=== PATIENT | male | born 1955 | race Caucasian/White ===

== ENCOUNTER → 2016-11-22 | Outpatient (CLI) | payer OTHER ==
[~2016-11-22] MED LIST: ADULT LOW DOSE81 MG PO; ASPIRIN EC81 M1; BACTRIM DS TAB1 EACH PO; CIPROFLOXACIN500 M1 PO; FLECAINIDE ACET50 M2; HYDROCODON-ACE1 EAC7; HYDROCODONE-AP1 EAC6; LORTAB 5 MG/5001 TA1 PO; NEURONTIN 300300 M1 PO; NORCO 5-325 TA1 EACH PO; NORVASC 2.5 MG2.5 M1; NORVASC 5 MG TAB5 MG PO; PERCOCET 5-3251 EACH PO; PERCODAN TABLE1 EACH; PRENATAL PO; SORINE 80 MG TA80 M1 PO; TOPROL XL25 MG; VITAMIN B-1100 M1 PO
== END ==
LOC: HYPER 06:57
DX: T81.31XA Disruption of external operation (surgical) wound, not elsewhere classified, initial encounter (principal); I48.91 Unspecified atrial fibrillation; R60.9 Edema, unspecified; I10 Essential (primary) hypertension; I73.9 Peripheral vascular disease, unspecified; E78.5 Hyperlipidemia, unspecified; J44.9 Chronic obstructive pulmonary disease, unspecified; M19.90 Unspecified osteoarthritis, unspecified site; Z86.718 Personal history of other venous thrombosis and embolism; F17.210 Nicotine dependence, cigarettes, uncomplicated; Z72.89 Other problems related to lifestyle; Y83.8 Other surgical procedures as the cause of abnormal reaction of the patient, or of later complication, without mention of misadventure at the time of the procedure

== ENCOUNTER → 2018-11-25 | Outpatient (CLI) | payer OTHER | LOC: HYPER 06:58 | DX: S71.101A Unspecified open wound, right thigh, initial encounter (principal); I10 Essential (primary) hypertension; I48.0 Paroxysmal atrial fibrillation; I73.9 Peripheral vascular disease, unspecified; L84 Corns and callosities; I48.91 Unspecified atrial fibrillation; G62.9 Polyneuropathy, unspecified; E78.5 Hyperlipidemia, unspecified; M19.90 Unspecified osteoarthritis, unspecified site; R55 Syncope and collapse; J44.9 Chronic obstructive pulmonary disease, unspecified; F17.200 Nicotine dependence, unspecified, uncomplicated; F41.9 Anxiety disorder, unspecified; F32.9 Major depressive disorder, single episode, unspecified; Z86.718 Personal history of other venous thrombosis and embolism; W57.XXXA Bitten or stung by nonvenomous insect and other nonvenomous arthropods, initial encounter; Y93.89 Activity, other specified; Y92.89 Other specified places as the place of occurrence of the external cause; Y99.8 Other external cause status ==

== ENCOUNTER → 2019-10-22 | Outpatient (CLI) | payer OTHER ==
[~2019-10-22] VITALS: Ht 175.3 cm; Wt 63.5 kg
[~2019-10-22] MED LIST changes: +ALDACTONE50 MG PO; +ALPRAZOLAM ER1 MG PO; +CRESTOR20 MG PO; +DILTIAZEM ER180 M2 PO; +ELIQUIS5 M1 PO; +LISINOPRIL5 MG PO; +LORCET 5-325 M1 EACH PO; +MAGNESIUM400 MG PO; +OMEPRAZOLE40 MG PO; +PERCOCET 10-321 EAC1 PO; +SYMBICORT160 MCG/4. INH; +TOPROL XL25 MG PO; +VITAMIN D3 COM1 EACH PO
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
[2019-10-22 14:17] VITALS: BP 164/92
--- NOTE | 2019-10-22 14:44 | NUR ---
Pain Clinic Assessment: 1. History of Osteoarthritis: BACK History of Rheumatoid Arthritis: 2. Height: 5 ft. 9 in. 175.3 cm. Weight: 140.0 lb. oz. 63.504 kg. Patient's BMI: 20.7 3. Vital Signs: BP: 164/92 Pulse: 96 Resp: 14 Temp: 02 Sat: 98 ECG Mon: 4. Pain Intensity: 10 5. Fall Risk: Dizziness: Y Needs help standing or walking: N Fallen in the last 3 months: Y Fall risk comments: 6. Patient on Blood Thinner: RUSHQUIS 7. History of Hypertension: Y 8. Opioid Therapy greater than 6 weeks: Y Opiate Contract Signed: 9. Risk Assessment Tool Provided: 4-MODERATE RISK 10. Functional Assessment Tool: 70/70 11. Recreational Drug Use: Never Drug Type: Tobacco Use: Current Every Day Smoker Tobacco Type: Cigars Amount or Packs/day: How Many Years: 20 Alcohol Use: Past use Frequency: Quant: USED TO ABUSE [place]
== END ==
LOC: PAIN 06:56
PROVIDERS: ATTEND Anesthesiology Pain Medicine
DX: G00.9 Bacterial meningitis, unspecified (principal); Z79.899 Other long term (current) drug therapy

== ENCOUNTER 2020-04-01 11:10 | Emergency (ER) | payer OTHER ==
[~2020-04-01] VITALS: Ht 175.3 cm; Wt 63.5 kg
[~2020-04-01 11:10] MED LIST changes: +GABAPENTIN100 MG PO
[2020-04-01 11:13] VITALS: BP 181/96
== END 2020-04-01 12:33 | disposition home or self-care (01) ==
LOC: ER 11:10
DX: M54.16 Radiculopathy, lumbar region (principal); F17.210 Nicotine dependence, cigarettes, uncomplicated; Z79.82 Long term (current) use of aspirin; Z79.899 Other long term (current) drug therapy; Z88.8 Allergy status to other drugs, medicaments and biological substances